=== PATIENT | female | born 1965 | race Caucasian/White ===

== ENCOUNTER 2016-11-15 14:00 | Inpatient (IN) | payer OTHER ==
[~2016-11-15] VITALS: Ht 160 cm; Wt 97.1 kg
--- NOTE | ~2016-11-15 | OR ---
PATIENT'S NAME: THANIA COTA [facility] [place] AGE: 51 Y [address] ROOM: [place] [id number] LOCATION: [facility] ADMIT DATE: 12/27/2016 OR/Procedure Report DISCHARGE DATE: FAMILY PHYSICIAN: Angelo Rod MD ATTENDING PHYSICIAN: MADONNA RAMIREZ SURGEON: Madonna Ramirez MD AUTOMATIC OVEN OPERATOR: 1. Clayton Kelly CST/SOLOMON. 2. Cecil Johnson. DATE OF PROCEDURE: 12/27/2016 PRE-OP DIAGNOSIS: Degenerative joint disease left knee. POST-OP DIAGNOSIS: Degenerative joint disease left knee. OPERATION: Left total knee arthroplasty with computer navigation. ANESTHESIA: Spinal anesthesia plus adductor canal block plus periarticular local anesthesia (ropivacaine with epinephrine and Toradol). ESTIMATED BLOOD LOSS: Less than 10 mL. DRAIN: None. SPECIMEN: None. COMPLICATIONS: None. IMPLANT SYSTEM: [place] Triathlon Size 3 left posterior stabilized femoral component Size 3 universal modular tibial baseplate 13 mm posterior stabilized size 3 X3 tibial polyethylene insert 29 mm Oval X3 patella component (triple pegged). INDICATIONS FOR SURGERY: Ms. Thania Cota is a 51-year-old female who presents with advanced left knee degenerative joint disease and associated severely compromised activities of daily living. The patient has decided to proceed with knee replacement after having been thoroughly counseled regarding the associated risks, benefits, and limitations. We have specifically reviewed the risks and implications of infection, deep venous thrombosis, pulmonary embolism, mortality, neurovascular complications, blood transfusion (and associated potential for disease transmission or transfusion reaction), stiffness, instability, mechanical deterioration of the components (due to wear and or loosening), and the potential need for revision. We have also emphasized the importance of active involvement and compliance with post- operative physical therapy as a means of optimizing range of motion and PATIENT'S NAME: THANIA COTA [facility] [place] AGE: 51 Y [address] ROOM: [address] [address] LOCATION: [facility] ADMIT DATE: 12/27/2016 OR/Procedure Report DISCHARGE DATE: FAMILY PHYSICIAN: Angelo Rod MD ATTENDING PHYSICIAN: MADONNA RAMIREZ functional recovery. Informed consent has been granted. DESCRIPTION OF PROCEDURE: The patient was positioned supine after administration of anesthesia and prophylactic antibiotics. A well-padded pneumatic tourniquet was placed around the left proximal thigh, and the left lower extremity was prepped and draped with vigilant sterile technique. The patient's name as well as the intended operative side and procedure were confirmed with a verbal time-out involving myself, the circulating nurse, the scrub nurse, and the anesthesiologist. Examination under anesthesia demonstrated no active skin lesion or masses. There was a moderate effusion. There was no erythema. There was no abnormal warmth. There were well-healed inferomedial and inferolateral arthroscopy portal scars. Range of motion under anesthesia was from full extension to 125 degrees of flexion. There was no clinically evident ligamentous laxity. The left lower extremity was elevated and exsanguinated with an Esmarch wrap, and the pneumatic tourniquet was inflated to 300mmHg. The knee was approached through a longitudinal midline incision. A medial parapatellar arthrotomy was performed and the patella was everted. Examination of the joint space demonstrated a large amount of benign-appearing translucent synovial fluid. There were no loose bodies. There was no synovitis. There was a 1 cm diameter (x 5 mm thick) osseous fragment adherent to the posterior aspect of the distal quadriceps tendon. This was excised. The anterior cruciate ligament was absent. There was a moderate-sized osteophyte at the intercondylar notch. The posterior cruciate ligament was intact. There was a large osteophyte at the superior margin of the patella. There were large osteophytes at the superior, medial, and lateral margins of the femoral trochlea. There was deep fissuring in the articular cartilage at the lateral face of the patella. There was an 8 x 20 mm region of vertically oriented full-thickness articular cartilage loss at the medial aspect of the femoral trochlea. There was full-thickness loss of articular cartilage throughout the posterior half of the medial femoral condyle and the posterior two-thirds of the medial tibial plateau as well as the posterior half of the lateral femoral condyle and the posterior half of the lateral tibial plateau. There was a large osteophyte at the medial femoral condyle. There was a moderate-sized osteophyte at the lateral tibial plateau. There was a moderate-sized osteophyte at the lateral margin of the lateral femoral condyle. There was moderate chondrocalcinosis at the medial and lateral meniscal remnants. The lateral meniscus was noted to be truncated. Remnants of the menisci and cruciate ligaments were excised. The [employer] computer navigation femoral tracker was pinned in place at the distal aspect of the femoral trochlea. Absence of motion between the femur and the tracking device was confirmed manually and visually. Femoral osseous landmarks were PATIENT'S NAME: THANIA COTA [facility] [place] AGE: 51 Y [address] ROOM: [address] [address] LOCATION: [facility] ADMIT DATE: 12/27/2016 OR/Procedure Report DISCHARGE DATE: FAMILY PHYSICIAN: Angelo Rod MD ATTENDING PHYSICIAN: MADONNA RAMIREZ in order to calibrate the computer navigation system. Landmarks included the center of rotation of the ipsilateral hip, the center-point of the distal femur, the femoral AP axis, 57 points on the medial femoral condyle articular surface, and 57 points on the lateral femoral condyle articular surface. The [employer] computer navigation system was subsequently utilized to position the distal femoral resection block such that the distal femoral resection was performed perfectly perpendicular to the femoral mechanical axis. The distal femoral resection was performed with a [employer] oscillating saw. The [employer] computer navigation tibial tracker was pinned in place at the anterior aspect of the tibial plateau. Absence of motion between the tibia and the tracking device was confirmed manually and visually. Tibial osseous landmarks were obtained in order to calibrate the computer navigation system. Landmarks included the center-point of the tibial plateau, the AP tibial axis, 57 points on the medial tibial plateau articular surface, 57 points on the lateral tibial plateau articular surface, the medial malleolus, and the lateral malleolus. The [employer] [address] computer navigation system was subsequently utilized to position the proximal tibial resection block such that the proximal tibial resection was performed perfectly perpendicular to the tibial mechanical axis. The proximal tibial resection was performed with a [employer]. Precision oscillating saw. Perpendicularity of the tibial resection with respect to the tibial shaft axis was reconfirmed by inserting a spacer-block attached to an extramedullary guide karma. External rotation of the anterior and posterior femoral resections was set parallel to the epicondylar axis and carefully adjusted in order to create a rectangular flexion gap. The box resection was performed with a reciprocating saw. Anterior and posterior chamfer resections were performed with the oscillating saw. Posterior condyle osteophytes were excised with an osteotome. All other osteophytes were excised with a rongeur. Resection of all remnants of the menisci was reconfirmed. Flexion and extension gaps were confirmed to be symmetric and well balanced with a spacer-block technique. The patella resection was performed with an oscillating saw such that the composite thickness of the reconstructed patella was equivalent to the thickness of the [place] patella. Patella tracking was optimal, and there was no need for a lateral retinacular release. All trial components were removed and all prepared osseous surfaces were thoroughly irrigated with pulsatile saline lavage and dried prior to cementing all three components in a single stage using [employer]. Simplex cement containing pre-mixed tobramycin. All extruded excess cement was removed. The entire joint space was thoroughly inspected and thoroughly irrigated with bacteriostatic pulsatile saline lavage to assure that there was no residual debris of any PATIENT'S NAME: THANIA COTA [facility] [place] AGE: 51 Y [address] ROOM: [place] [address] LOCATION: [facility] ADMIT DATE: 12/27/2016 OR/Procedure Report DISCHARGE DATE: FAMILY PHYSICIAN: Angelo Rod MD ATTENDING PHYSICIAN: MADONNA RAMIREZ. Final range of motion was from full extension (with no passive hyperextension) to 130 degrees of flexion. Patella tracking was reconfirmed to be optimal. There was excellent anteroposterior stability at 90 degrees of flexion. There was 0 mm of medial lift-off to valgus stress in full extension. There was 1 mm of lateral lift-off to varus stress in full extension. The arthrotomy was closed with multiple simple and [id number] interrupted #1 Vicryl. Subcutaneous tissues were thoroughly re-irrigated with bacteriostatic pulsatile saline lavage. Subcutaneous tissues were re- approximated with simple buried interrupted #0 Vicryl sutures. The skin was closed with simple buried interrupted 2-0 Vicryl sutures followed by surgical izabella. The dressing consisted of Xeroform gauze, 4x4 gauze, ABD pads and two 6-inch Kennedy Wraps. There were no intra-operative complications. MD NICA WICK/emily /[id number] d: 12/27/16 2201 t: 01/04/17 0716, OPERATIVE SUMMARY
--- NOTE | ~2016-11-15 | DS ---
PATIENT'S NAME: THANIA BARAKAT [facility] AGE: 51 Y [address] ROOM: [place] [address] LOCATION: [facility] ADMIT DATE: 12/27/2016 Discharge Summary DISCHARGE DATE: 12/29/2016 FAMILY PHYSICIAN: Angelo Rod MD ATTENDING PHYSICIAN: Madonna Ramirez PRIMARY DIAGNOSIS: Degenerative joint disease of the left knee. SECONDARY DIAGNOSES: 1. History of deep vein thrombosis. 2. Hypertension. 3. Hypothyroidism. 4. History of pulmonary embolism. 5. Long-term use of anticoagulants. PROCEDURE PERFORMED: Left total knee arthroplasty with computer navigation. HISTORY: The patient is a 51-year-old female, who presents with advanced left knee degenerative joint disease and associated severely compromised activities of daily living. The patient has decided to proceed with total knee arthroplasty after having been thoroughly counseled regarding the risks, benefits, limitations, and alternatives. Please refer to the outpatient clinic notes and admission history and physical for this patient. HOSPITAL COURSE: The patient underwent a left total knee arthroplasty on 12/27/2016 without complications. Spinal anesthesia plus adductor canal block plus periarticular local anesthesia was utilized. The patient received 24 hours of perioperative prophylactic antibiotics and remained hemodynamically stable, neurovascularly intact throughout the entire hospital course. The postoperative prophylactic deep venous thrombosis prophylaxis consisted of Lovenox, early mobilization and pneumatic compression devices. Daily physical therapy for gait training, transfer training range of motion and quadriceps isometric exercises were received. The patient progressed well in physical therapy. On the date of discharge, 12/29/2016, the incision at the knee was healing well and showed no signs of infection. DISPOSITION: Home. DISCHARGE ACTIVITY: The patient is to bear weight as tolerated with range of motion and quadriceps isometric exercises as instructed. The operative extremity is to be elevated at least 90% of the day. There is to be sterile 4x4 gauze dressings to the incision daily. Dr. Ramirez is to be notified immediately if there is any increased pain, fevers, chills, erythema, or drainage. PATIENT'S NAME: THANIA BARAKAT [facility] AGE: 51 Y [address] ROOM: [place] [address] LOCATION: [facility] ADMIT DATE: 12/27/2016 Discharge Summary DISCHARGE DATE: 12/29/2016 FAMILY PHYSICIAN: Angelo Rod MD ATTENDING PHYSICIAN: Madonna Ramirez DISCHARGE MEDICATIONS: Include, 1. Lovenox 30 mg subcutaneously twice daily for DVT prevention. 2. Valium 5 mg, take 1/2 tablet to 1 tablet every 6 hours as needed for muscle spasms. 3. Dilaudid 2 mg, take 1 to 2 tablets p.o. every 4 hours as needed for pain. FOLLOWUP: Followup date is scheduled for January 03, 2017, for initial postoperative evaluation. DARLIN DAVIS FOR MADONNA RAMIREZ MD TLB/modl /[id number] d: 01/04/17 0401 t: 01/06/17 0945, DISCHARGE SUMMARY
[~2016-11-15 14:00] MED LIST: AMLODIPINE-BEN1 EAC1 PO; ASPIRIN EC81 MG PO; CLEOCIN HCL300 MG PO; COLACE100 MG PO; COUMADIN ** IA5 MG PO; DILAUDID 2MG(HYD2 MG PO; LEVOTHROID (S137 MCG PO; LOVENOX 3030 MG/0.3 SUB-Q; MIRALAX17 GM PO; NORCO 5-325 TA1 EACH PO; TYLENOL EXTRA500 MG PO; ULTRAM50 MG PO; VALIUM5 MG PO; WOMEN'S GENTLE L5 MG PO
[2016-12-27 09:10] LABS: PROTIME 10.7 SECONDS (9.6-11.1)
--- NOTE | 2016-12-27 17:04 | NUR ---
Patient was given scheduled tylenol and dilaudid for anticipated pain as reports is beginning to have tingling. Cont ice to knee.
--- NOTE | 2016-12-27 18:28 | NUR ---
ARRIVED FROM PACU AT 1515. FIRST HOURLY VITAL SIGN WILL BE AT 1900. O2 ON AT 2L PER NC. UNABLE TO VOID WHEN RETURNED TO THE FLOOR SO ANTONIETA CATHED AT 1600 FOR 1000 ML'S. HAS SENSATION TO KNEES NOW AND CAN SLIGHTLY MOVE FEET. HAD DILAUDID 2M AT 1645 ALONG WITH ROUTINE TYLENOL. DRESSING C/D/I. VERY COOPERATIVE WITH CARES.
--- NOTE | 2016-12-28 04:03 | NUR ---
Shift Summary: Patient can ambulate with one assist/walker. Voiding without difficulty. Tolerating regular diet well. Gave 2mg Dilaudid PO/0.25mg IV at 0144.
[2016-12-28 07:06] LABS: PROTIME 10.9 SECONDS (9.6-11.1)
--- NOTE | 2016-12-28 09:45 | NUR ---
Introduced self to patient and her Salvatore, they live in [place]. She has no concerns about going home. Has her other knee done this past September. Has all the DME she will need. has taken a week off of work. Added my name to her marker board, will continue to follow.
--- NOTE | 2016-12-28 16:03 | NUR ---
Significant Event: PT ALERT AND ORIENTED. UP IN THE ROOM WITH 1 ASSIST LUIS ANGEL WELL. VOIDS WELL. NO BM TODAY. ICE TO KNEE. SHE HAS HAD A HEADACHE ON AND OFF THIS SHIFT AND LAST NIGHT. EXCEDRIN ORDERED. DILUADID AND TORODOL GIVEN ALSO. ZOFRAN GIVEN BEFORE LUNCH. WILL PROBABLY GO HOME TOMORROW. RESTED IN THE BED AT INTERVALS THIS SHIFT. FAMILY PRESENT IN THE ROOM. Follow up:
--- NOTE | 2016-12-29 04:12 | NUR ---
Patient alert and oriented x3, very pleasant and cooperative, csm with in normal limits, ambulates well with stand by assist, dressing clean dry and intact, did have c/o headache at beginin of shift but is better now, has rested well, plans to go home today
[2016-12-29 05:37] LABS: INR - (THERAPEUTIC) 1.2 (0.9-1.1); PROTIME 12.7 SECONDS (9.6-11.1)
[2016-12-29] MEDS ORDERED: TYLENOL EXTRA500 MG PO (12:14)
[2016-12-29] MEDS ORDERED: COLACE100 MG PO (12:15)
[2016-12-29] MEDS ORDERED: NEURONTIN300 MG PO (12:16)
[2016-12-29] MEDS ORDERED: LOVENOX 3030 MG/0.3 PO (12:16)
[2016-12-29] MEDS ORDERED: MIRALAX17 GM PO (12:18)
[2016-12-29] MEDS ORDERED: VALIUM5 MG PO (12:19)
[2016-12-29] MEDS ORDERED: DILAUDID 2MG(HYD2 MG PO (12:25)
[2016-12-29] MEDS ORDERED: PHENERGAN12.5 MG PO (12:26)
[2016-12-29] MEDS ORDERED: COREG12.5 MG PO (14:26)
--- NOTE | 2016-12-29 14:58 | NUR ---
pt given discharge instructions and voices understanding. medications reviewed and dressing changes reviewed. voices understanding. escorted to the front door by transport staff. by pt's side.
== END 2016-12-29 14:50 | disposition disaster alternative care site (69) | DRG 470 ==
LOC: G3N 12-27 08:20
PROVIDERS: ADMIT Orthopaedic Surgery
PROC: XR2H021 Monitoring of Left Knee Joint using Intraoperative Knee Replacement Sensor, Open Approach, New Technology Group 1 (ICD-10-PCS; principal; 2016-12-27)
PROC: 0SRD0J9 Replacement of Left Knee Joint with Synthetic Substitute, Cemented, Open Approach (ICD-10-PCS; principal; 2016-12-27)
DX: M17.12 Unilateral primary osteoarthritis, left knee (principal); I10 Essential (primary) hypertension; E03.9 Hypothyroidism, unspecified; Z86.711 Personal history of pulmonary embolism; Z79.01 Long term (current) use of anticoagulants
CPT/HCPCS: C1713; C1776; J1100; J1170; J1650; J1885; J2001; J2250; J2405; J2550; J2795; J7120

== ENCOUNTER 2017-01-27 06:27 | Emergency (ER) | payer OTHER ==
--- NOTE | ~2017-01-27 | ER ---
PATIENT'S NAME: THANIA BARAKAT [facility] AGE: 51 Y [address] ROOM: [place] [address] LOCATION: ED ADMIT DATE: 01/27/2017 ER/Outpatient Report DISCHARGE DATE: 01/27/2017 FAMILY PHYSICIAN: Angelo Rod MD ATTENDING PHYSICIAN: [place] Admission date and time documented in the medical record. I saw the patient at 0645 hours. CHIEF COMPLAINT: Shortness of breath. HISTORY OF PRESENT ILLNESS: The patient is a 51-year-old female who was awoken from sleep at around 0400 hours with tightness in her chest and shortness of breath. The patient has a history of pulmonary embolism and was really concerned that this might be a problem. She is chronically anticoagulated with Coumadin. She has had no recent cough, cold, flus, fever, chills, or sweats. On admission to the emergency room, her oximetry is 100%. She was having no chest tightness or shortness of breath at that time. No headache. No eyes, ears, nose, throat, neck, or spine pain. No fall or trauma. No lightheadedness, dizziness, syncope, or near syncope. No abdominal pain, nausea, vomiting, diarrhea, or urinary complaints. No joint or muscle swelling, redness, or pain. No skin eruptions or rash. No history of neuro changes or psych issues. She does have hypothyroidism. One month ago, she had a left total knee arthroplasty, so she is really concerned that she may have a postop pulmonary embolism. HOME MEDICATIONS: See attached medication list. ALLERGIES: PENICILLIN AND MORPHINE. SOCIAL HISTORY: Nonsmoker. Occasional intake of alcohol. SIGNIFICANT PAST MEDICAL HISTORY: Deep vein thrombosis, pulmonary embolism, hypertension, hypothyroidism, long- term anticoagulation with Coumadin, degenerative joint disease, degenerative osteoarthritis. OPERATIONS: Bilateral total knee arthroplasty, x2, bilateral total hip arthroplasty. PATIENT'S NAME: THANIA BARAKAT [facility] AGE: 51 Y [address] ROOM: [place] [address] LOCATION: ED ADMIT DATE: 01/27/2017 ER/Outpatient Report DISCHARGE DATE: 01/27/2017 FAMILY PHYSICIAN: Angelo Rod MD ATTENDING PHYSICIAN: Mian,Los D REVIEW OF SYSTEMS: All systems reviewed by me are negative with the exception of those discussed in the history of the present illness. PHYSICAL EXAMINATION: VITAL SIGNS: Temperature 97.2, pulse 70 and regular, respirations 22, blood pressure 125/83, O2 saturation on room air is 100%. HEAD: Normocephalic. EYES, EARS, NOSE, AND THROAT: Clear. Mucous membranes moist. NECK: No nuchal rigidity. No findings of adenopathy. No carotid bruits. LUNGS: Clear. Good air flow. No rales, rhonchi, or wheezes. HEART: Regular. Pulses are palpable. No chest wall or ribcage pain to palpation. ABDOMEN: Soft, nondistended, and nontender. Good bowel tones. No organomegaly or abnormal masses palpable. EXTREMITIES: No peripheral edema, cyanosis, or deformity. Neurovascularly intact. SKIN: Clear. No skin eruptions or rash. IMAGING: Chest x-ray showed no acute infiltrate or changes. We will review x-ray with radiologist. CT scan of the chest with PE protocol showed no evidence of pulmonary embolism, pulmonary fluid, effusion, pulmonary edema, or consolidation. CT scan was read by Radiology, see dictated transcribed report. LABORATORY DATA: Arterial blood gas showed a pH of 7.45, pCO2 of 35, pO2 of 115 with an O2 saturation of 99%. Lactate was 0.58. Procalcitonin was less than 0.05. CMS was normal except for a slightly elevated glucose of 101. CPK was 66, CK-MB was less than 0.5, troponin was less than 0.04. CRP was 0.64. ProBNP was 193. White count was 4000. Differential of 38 segs, 34 lymphs, 10 monos, 16 eos, 1 baso. Hemoglobin 12.2 with hematocrit 37.8, platelet count is 202,000. PTT was 41, pro-time was 24.1 with an INR of 2.28. D-dimer was 3.66. IMPRESSION: 1. Acute onset episode of shortness of breath, etiology uncertain. There was no evidence of pulmonary embolism, acute lung infiltrate, pulmonary edema or effusions. She was saturating normal, had a PO2 of 115 on arterial blood gases. Her cardiac enzymes were normal. She is one month postop total knee arthroplasty. 2. Hypertension. 3. Past history of deep vein thrombosis and pulmonary embolism, on chronic long-term anticoagulation using Coumadin. PATIENT'S NAME: THANIA BARAKAT [facility] AGE: 51 Y [address] ROOM: [place] [address] LOCATION: [facility] ADMIT DATE: 01/27/2017 ER/Outpatient Report DISCHARGE DATE: 01/27/2017 FAMILY PHYSICIAN: Angelo Rod MD ATTENDING PHYSICIAN: [place] PLAN: The patient dismissed to home. Observation. Activity as tolerated. Continue present home medications and care. Fluids and diet as tolerated. Follow up with personal physician as needed. Discussion ensued with the patient concerning my findings and recommendations, and she understands. MD HAYLEY FARR/modl /[id number] d: 01/27/17 1554 t: 01/28/17 0610, OUTPATIENT REPORT
[~2017-01-27 06:27] MED LIST changes: +COREG12.5 MG PO; +LOVENOX 3030 MG/0.3 PO; +NEURONTIN300 MG PO; +PHENERGAN12.5 MG PO
[2017-01-27 06:58] LABS: BICARBONATE 25.7 mmol/L (18.0-23.0); PCO2 37 mmHg (35-45); PO2 115 mmHg (80-90)
[2017-01-27 06:59] LABS: LACTATE 0.58 mEq/L (0.50-1.60)
[2017-01-27 07:07] LABS: BASOPHIL # 0.1 K/uL (0.0-0.2); BASOPHIL % 1.3 %; EOSINOPHIL # 0.6 K/uL (0.0-0.5); EOSINOPHIL % 16.2 %; HEMATOCRIT 37.8 % (33.0-46.0); HEMOGLOBIN 12.2 g/dL (10.0-15.0); IMMATURE GRANULOCYTE % 0.3 %; LYMPHOCYTE # 1.4 K/uL (0.8-4.0); LYMPHOCYTE % 34.1 %; MCH 29.5 pg (27.0-34.0); MCHC 32.3 gm/dL (32.0-36.5); MCV 91.5 fl (83.0-98.0); MONOCYTE # 0.4 K/uL (0.0-1.0); MONOCYTE % 9.8 %; MPV 10.2 fl (9.4-12.4); NEUTROPHIL # (ANC) 1.5 K/uL (1.8-7.8); NEUTROPHIL % 38.3 %; NRBC % 0 /100WBC (0-0.00); PLATELET COUNT 202 K/uL (150-450); RBC 4.13 M/uL (3.50-5.50); RDW-CV 14.4 % (11.9-14.6)
[2017-01-27 07:18] LABS: INR - (THERAPEUTIC) 2.28 (0.92-1.07); PROTIME 24.1 SECONDS (9.8-11.4)
[2017-01-27 07:20] LABS: PTT 41 SECONDS (25-32)
[2017-01-27 07:27] LABS: ALBUMIN 3.8 gm/dL (3.5-5.0); ALK PHOS 81 IU/L (33-138); ALT 19 IU/L (12-78); ANION GAP 10.2 (10.0-19.0); AST 13 IU/L (10-40); BLOOD UREA NITROGEN 17 mg/dL (6-24); CALCIUM 8.5 mg/dL (8.5-10.5); CHLORIDE 109 mMol/L (96-110); CO2 27 mMol/L (22-32); CPK 66 IU/L (21-215); CREATININE 0.9 mg/dL (0.5-1.1); ESTIMATED GFR (MDRD EQUATION) > 60; POTASSIUM 4.2 mMol/L (3.7-5.1); SODIUM 142 mMol/L (135-145); TOTAL BILIRUBIN 0.4 mg/dL (0.0-1.5); TOTAL PROTEIN 6.7 g/dL (6.0-8.4)
== END 2017-01-27 09:22 | disposition disaster alternative care site (69) ==
LOC: GMED 06:27
PROVIDERS: Emergency Medicine
DX: R06.02 Shortness of breath (principal); Z88.0 Allergy status to penicillin; Z88.8 Allergy status to other drugs, medicaments and biological substances; Z96.653 Presence of artificial knee joint, bilateral; Z96.643 Presence of artificial hip joint, bilateral; I10 Essential (primary) hypertension; Z86.718 Personal history of other venous thrombosis and embolism; Z79.01 Long term (current) use of anticoagulants
CPT/HCPCS: Q9967